=== PATIENT | female | born 1950 | race Caucasian/White ===

== ENCOUNTER → 2018-04-18 08:00 | Outpatient (CLI) | payer MEDICARE | END | disposition home or self-care (01) | LOC: D.MAMMO 08:00 | DX: Z12.31 Encounter for screening mammogram for malignant neoplasm of breast (principal) ==

== ENCOUNTER 2018-06-09 10:46 | Outpatient (CLI) | payer MEDICARE, OTHER ==
[~2018-06-09] VITALS: Ht 162.6 cm; Wt 74.5 kg
--- NOTE | ~2018-06-09 | HEMODYNAMI ---
PATIENT:GLYNN PERSON MEDICAL RECORD: [id number] : 46 LOCATION:[facility] ADMISSION DATE: 06/09/18 Generatedon:06/09/201813:49 Patient name: GLYNN PERSON Patient #: [id number] SSN: [id number] : 1950 Date of study: 06/09/2018 Page: Of Hemodynamic Procedure Report Patient Data Patient Demographics Procedure consent was obtained First Name: GLYNN Gender: Female Last Name: NAYA : 1950 Patient #: [id number] Age: 67 year(s) Race: SSN: [id number] Additional ID: [id number] Contact details Address: [place] [address] State: [place] City: [place] Zip code: [address] Past Medical History Allergies Allergen Reaction Date Comments Reported Other allergy 06/09/2018 chocolate, latex Admission Admission Data Admission Date: 06/09/2018 Admission Time: 10:46 Procedure Procedure Types Cath Procedure Diagnostic Procedure Right Heart RHC and LHC w/Coronaries Aortic Root Angiography Sedation Charges Moderate Sedation up to 15 minutes Procedure Description Procedure Date Procedure Date: 06/09/2018 Procedure Start Time: 13:25 Procedure End Time: 13:48 Procedure Staff Name Function Chase Jarquin MD Performing Physician Alexandra Bruce RT Scrub Richmond Rodriguez RN Nurse Rula Gomez RT Monitor Procedure Data Cath Procedure Fluoroscopy Diagnostic fluoroscopy Total fluoroscopy Time: 3.6 time: 3.6 min min Diagnostic fluoroscopy Total fluoroscopy dose: 361 dose: 361 mGy mGy Contrast Material Contrast Material Type Amount (ml) Isovue 300 83 Entry Location Entry Primary Successful Side Size Upsize Upsize Entry Closure Bianchi ccessful Closure Location (Fr) 1 (Fr) 2 (Fr) Remarks Device Remarks Femoral Right 5 Fr Exoseal artery Femoral Right 7 Fr Manual vein Short Compression Estimated blood loss: 10 ml Diagnostic catheters Device Type Used For End Catheter Placement SWAN 7Fr Thermodilution Pressure cather (131F7P) Measurement MULTIPACK JL 4.0 5Fr Procedure catheter MULTIPACK 3DRC 5Fr Procedure catheter MULTIPACK Pigtail 5 Fr Procedure catheter Procedure Complications No complications Procedure Medications Medication Administration Route Dosage Oxygen etCO2 Nasal cannula 2 l/min Lidocaine 2% added to field 20 Heparin Flush Bag added to field 2 bags (1000units/500ml NS) 0.9% NaCl I.V. 100 ml/hr Versed I.V. 1 mg Fentanyl I.V. 50 mcg Versed I.V. 1 mg Fentanyl I.V. 50 mcg Hemodynamics Rest Heart Rate: 80 (bpm) Oxygen Saturations Time Location Saturations Hgb (g/dl) O2 Content Use (%) (ml/L) 13:32 PA 77 13:34 RV 75.8 13:36 RA 77 Pressure Samples Time Site Value (mmHg) Purpose Heart Use Rate(bpm) 13:28 PA 25/5(13) Snapshot 76 13:29 PCW -2/-2(-3) Snapshot 75 13:31 PA 30/11(19) Snapshot 79 13:31 PCW 1/6(3) Snapshot 77 13:33 RV 29/-3,1 Snapshot 77 13:34 RA 4/2(1) Snapshot 81 13:41 LV 130/-11,12 Snapshot 87 13:42 LV 123/-16,12 Snapshot 92 13:42 AO 133/62(94) Pullback 66 13:42 LV 133/-11,13 Pullback 66 13:43 AO 122/53(82) Pullback 90 13:43 LV 129/-16,8 Pullback 90 Gradients Valve Time Site 1 Site 2 Mean SEP/DFP Peak To Heart Use (mmHg) (sec/min) Peak Rate (mmHg) (bpm) Aortic 13:42 LV AO 6 13 0 66 133/-11,13 133/62(94) Aortic 13:43 LV AO 10 25 7 90 129/-16,8 122/53(82) Calculations Valve P-P Mean Valve Index Valve Source Name Gradient Area Flow (cm2) Aortic 7 10 7 10 Snapshots Pre Cath Intra NCS Post Cath Vital Signs Time Heart Resp SPO2 etCO2 NIBP Rhythm Pain Sedation Rate (ipm) (%) (mmHg) (mmHg) Status Level (bpm) 13:14:06 73 18 97 25 125/70(94) NSR 0 (11) 10(A) , No pain 13:18:17 78 15 97 29.2 125/67(89) NSR 0 (11) 10(A) , No pain 13:22:27 78 11 94 27.7 117/70(92) NSR 0 (11) 10(A) , No pain 13:26:39 70 14 96 18.7 97/53(70) NSR 0 (11) 10(A) , No pain 13:30:43 73 12 99 23.2 117/62(90) NSR 0 (11) 10(A) , No pain 13:34:53 81 17 96 31.4 117/68(90) NSR 0 (11) 10(A) , No pain 13:39:03 83 13 97 29.2 113/65(86) NSR 0 (11) 10(A) , No pain 13:43:10 87 16 97 34.4 124/66(95) NSR 0 (11) 10(A) , No pain 13:47:20 82 11 96 35.2 129/69(97) NSR 0 (11) 10(A) , No pain Medications Time Medication Route Dose Verified Delivered Reason Notes Eff ectiveness by by 13:15:10 Oxygen etCO2 2 Chase Buffie used for Nasal l/min Britton Rodriguez RN procedure cannula 13:15:28 Lidocaine 2% added 20ml Chase Buffie for local to vial Britton Rodriguez RN anesthetic field 13:15:33 Heparin Flush added 2 Chase Buffie used for Bag to bags Britton Rodriguez RN procedure (1000units/500ml field NS) 13:15:41 0.9% NaCl I.V. 100 Chase Buffie Per ml/hr Britton Rodriguez RN physician 13:23:33 Versed I.V. 1 mg Chase Buffie for Britton Rodriguez RN sedation 13:23:42 Fentanyl I.V. 50 Chase Buffie for mcg Britton Rodriguez RN sedation 13:25:49 Versed I.V. 1 mg Chase Buffie for Britton Rodriguez RN sedation 13:25:52 Fentanyl I.V. 50 Chase Buffie for mcg Britton Rodriguez RN sedation Procedure Log Time Note 12:55:45 Informed consent obtained and on chart 12:56:12 Richmond Rodriguez RN sent for patient. Start room use. 12:56:13 Time tracking: Regular hours (M-F 7:00 - 5:00) 12:56:17 Plan of Care:Hemodynamics will remain stable., Cardiac rhythm will remain stable., Comfort level will be maintained., Respiratory function will remain adequate., Patient/ family verbilizes understanding of procedure., Procedure tolerated without complication., Recovers from procedure without complications.. 13:04:50 Patient received from Pre/Post Procedure Room to [facility] 2 Alert and oriented. Tansferred to table in Supine position. 13:04:52 Warm blankets applied, and angela hugger turned on for patient comfort. 13:04:52 Correct patient and procedure confirmed by team. 13:04:53 ECG and BP/O2 sat monitors applied to patient. 13:12:59 Vital chart was started 13:15:10 Oxygen 2 l/min etCO2 Nasal cannula was administered by Richmond Rodriguez RN; used for procedure; 13:15:28 Lidocaine 2% 20ml vial added to field was administered by Richmond Rodriguez RN; for local anesthetic; 13:15:33 Heparin Flush Bag (1000units/500ml NS) 2 bags added to field was administered by Richmond Rodriguez RN; used for procedure; 13:15:41 0.9% NaCl 100 ml/hr I.V. was administered by Richmond Rodriguez RN; Per physician; 13:19:18 Use device set Femoral Dx 13:20:20 SHEATH 7FR [place] ([id number]) opened to sterile field. 13:20:21 ACIST Syringe (74400) opened to sterile field. 13:20:22 Bag Decanter (2001S) opened to sterile field. 13:20:22 Medline Cath Pack ([id number]) opened to sterile field. 13:20:23 DIAGNOSTIC WIRE .035 260cm J wire (048763) opened to sterile field. 13:20:24 ACIST Hand Control (45746) opened to sterile field. 13:20:25 ACIST Manifold (53957) opened to sterile field. 13:20:26 DIAGNOSTIC Multipack 5Fr catheter set (PP7529) opened to sterile field. 13:20:26 Tegaderm 4 x 4 (1626W) opened to sterile field. 13:20:28 PERCUTANEOUS ENTRY 19GA needle opened to sterile field. 13:20:33 SHEATH Prelude 5Fr 0.035 ([id number]) opened to sterile field. 13:20:48 Baseline sample Acquired. 13:20:52 Rhythm: sinus rhythm 13:20:54 Full Disclosure recording started 13:21:08 H&P Date Dictated: 06/04/2018 Within 30 days and on chart.. 13:21:10 Pre-procedure instructions explained to patient. 13:21:13 Family in waiting room. 13:21:15 Patient NPO since Midnight. 13:21:35 Patient allergic to Other allergychocolate, latex 13:21:39 Is the patient allergic to Iodine/contrast media? No. 13:21:46 Was the patient premedicated? Yes 13:21:47 Is patient on blood thinner?No 13:21:49 Patient diabetic? No. 13:21:54 Snore? No 13:21:55 Sleep apnea? No 13:22:01 Dentures? Yes in tight 13:22:08 IV patent on arrival in left forearm with 0.9% NaCl at O. 13:22:29 Lab results completed and on chart. 13:22:34 Right groin area was prepped with chlora-prep and draped in sterile fashion 13:22:35 Alarms reviewed by R. N. 13:22:36 Sharps counted by scrub and verified by R.N. 13:22:44 Physician arrived 13::44 --------ALL STOP TIME OUT------ 13:22:45 Final Timeout: patient, procedure, and site verified with staff and physician. All members of the team are in agreement. 13:22:48 Right groin site verified by team. 13:22:57 Physical assessment completed. ASA score P 2 - A patient with mild systemic disease as per Chase Jarquin MD. 13:23:33 Versed 1 mg I.V. was administered by Richmond Rodriguez RN; for sedation; 13:23:33 Sedation plan: IV Moderate Sedation Medication:Versed, Fentanyl 13:23:42 Fentanyl 50 mcg I.V. was administered by Richmond Rodriguez RN; for sedation; 13:23:43 Procedure started. 13:25:22 Local anesthetic to right femoral artery with Lidocaine 2% by Chase Jarquin MD.INITIAL ACCESS ONLY 13:25:49 Versed 1 mg I.V. was administered by Richmond Rodriguez RN; for sedation; 13:25:52 Fentanyl 50 mcg I.V. was administered by Richmond Rodriguez RN; for sedation; 13::56 A 5 Fr sheath was inserted into the Right Femoral artery 13:26:23 A 7 Fr Short sheath was inserted into the Right Femoral vein 13:26:57 A SWAN 7Fr Thermodilution cather (131F7P) was advanced over the wire and used for Pressure Measurement. 13:30:31 Zero performed for pressure channel P1 13:30:33 Zero performed for pressure channel P1 13:32:56 PA saturation: 77% 13:34:09 RV saturation: 75.8% 13:36:02 RA saturation: 77% 13:37:48 Catheter removed. 13:37:55 A MULTIPACK JL 4.0 5Fr catheter was advanced over the wire and used for Procedure. 13:38:14 LCA angiography performed. 13:38:19 Catheter removed. 13:39:46 A MULTIPACK 3DRC 5Fr catheter was advanced over the wire and used for Procedure. 13:40:03 RCA angiography performed. 13:40:48 Catheter removed. 13:40:56 A MULTIPACK Pigtail 5 Fr catheter was advanced over the wire and used for Procedure. 13:41:50 LV angiography performed. 13:42:21 EF : 60 % 13:44:30 LV hemodynamics recorded. 13:44:48 Catheter removed. 13:45:37 Sheath removed intact; hemostasis achieved with Manual Compression to the Right Femoral vein. 13:45:44 Sheath removed intact; hemostasis achieved with Exoseal to the Right Femoral artery. 13:45:46 Procedure ended.(Physican Out) 13:46:01 Fluoroscopy time 03.60 minutes. 13:46:09 Fluoroscopy dose: 361 mGy 13:46:09 Flurop Dose total: 361 13:46:15 Contrast amount:Isovue 300 83ml. 13:46:17 Sharps counted by scrub and verified by R.N. 13:46:22 Insertion/operative site no bleeding no hematoma. 13:46:28 Post-op/insertion site Right Femoral artery dressed using a 4 x 4 and Tegaderm. 13:46:30 Post Procedure Pulses reassessed and unchanged 13:46:57 Post-procedure physical assessment completed. ASA score P 2 - A patient with mild systemic disease as per Chase Jarquin MD. 13:47:00 Post procedure rhythm: unchanged. 13:47:02 Estimated blood loss: 10 ml 13:47:04 Post procedure instruction explained to patient.Patient verbalizes understanding. 13:47:23 Procedure type changed to Cath procedure, Diagnostic procedure, Right Heart, RHC and LHC w/Coronaries, Aortic Root Angiography, Sedation Charges, Moderate Sedation up to 15 minutes 13:47:27 Procedure and supply charges have been captured, reviewed, submitted and are correct. 13:48:19 Procedure Complication : No complications 13:48:21 Vital chart was stopped 13:48:21 See physician's report for complete and final results. 13:48:23 Report given to Pre/Post Procedure Room. 13:48:26 Patient transfered to Pre/Post Procedure Room with Stretcher. 13:48:29 Procedure ended. 13:48:29 Full Disclosure recording stopped 13:48:34 End room use (Document Last) Device Usage Item Name Manufacture Quantity Catalog Number Hospital Part Current M inimal Lot# / Charge Number Stock Stock Serial# Code SHEATH 7FR Terumo 1 [id number] [id number] 232073 5 [place] ([id number]) ACIST Syringe Acist 1 50336 485783 841085 527028 2 0 (97466) [employer] Bag Decanter Microtek 1 2001S 482689 05880 987279 5 (2001S) Medical Inc. Medline Cath Cardinal 1 [id number] 628443 13158 880821 5 [employer] Health ([id number]) DIAGNOSTIC WIRE [place] 1 211216 654271 067318 590145 3 0 .035 260cm J wire (130551) ACIST Hand Acist 1 53774 077104 586297 794353 5 Control (74399) [employer] ACIST Manifold Acist 1 10395 043657 977484 055524 5 (72492) [employer] DIAGNOSTIC Cardinal 1 [id number] 650335 61435 797034 3 0 Multipack 5Fr Health catheter set ([id number]) Tegaderm 4 x 4 3M 1 1626W 960480 826548 055230 5 (1626W) PERCUTANEOUS Cook Medical 1 R73123 444656 457090 5 ENTRY 19GA needle SHEATH Prelude Merit 1 [id number] 789584 485662 799158 5 5Fr 0.035 Medical ([id number]-[id number]) SWAN 7Fr [place] 1 131F7P 392841 72115 271355 3 Thermodilution [employer]iences cather (131F7P) MULTIPACK JL Cardinal 1 753133 5 4.0 5Fr Health catheter MULTIPACK 3DRC Cardinal 1 815456 5 5Fr catheter Health MULTIPACK Cardinal 1 330794 5 Pigtail 5 Fr Health catheter Signature Audit [place] Stage Time Signature Unsigned Intra-Procedure 06/09/2018 Rula Gomez 1:49:11 PM RT(R) Signatures Monitor : Rula Gomez Signature : RT Date : Time : [place] [id number]
[2018-06-09] MEDS ORDERED: VERELAN120 MG PO (11:08)
[2018-06-09 11:20] VITALS: BP 151/86; Ht 162.6 cm; Wt 74.5 kg
[2018-06-09 11:27] LABS: BASOPHILS 0.4 % (0-2); EOSINOPHILS 1.2 % (0-7); HEMATOCRIT 44.3 % (36.0-48.0); HEMOGLOBIN 14.9 g/dL (12-16); IMMATURE GRANULOCYTES 0.2 % (0-5); MCH 31.5 pg (26.0-34.0); MCHC 33.6 g/dL (31.0-37.0); MCV 93.7 fL (80.0-100.0); MEAN PLATELET VOLUME 10.1 fL (7.4-10.4); MONOCYTES 6.2 % (2-11); PLATELET COUNT 211 10x3/uL (130-400); RBC 4.73 10x6/uL (4.00-5.40); RDW 12.9 % (11.5-14.5); WBC 5.7 10x3/uL (4.8-10.8)
[2018-06-09 11:34] LABS: ANION GAP 13.1 mmol/L (8-16); CALCIUM 9.1 mg/dL (8.5-10.1); CARBON DIOXIDE 28.1 mmol/L (21.0-32.0); CREATININE - SERUM 0.9 mg/dL (0.6-1.3); POTASSIUM - SERUM 4.2 mmol/L (3.5-5.1)
== END 2018-06-09 16:15 | disposition home or self-care (01) ==
LOC: D.CATH 10:46
PROVIDERS: Internal Medicine Cardiovascular Disease
DX: I25.119 Atherosclerotic heart disease of native coronary artery with unspecified angina pectoris (principal); I35.1 Nonrheumatic aortic (valve) insufficiency; Z01.812 Encounter for preprocedural laboratory examination

== ENCOUNTER → 2018-10-16 11:34 | Outpatient (CLI) | payer MEDICARE, OTHER ==
[2018-06-09 11:20] VITALS: BMI 28.2
[~2018-10-16 11:34] MED LIST: VERELAN120 MG PO
[2018-10-19 18:06] LABS: IMMUNOGLOBULIN E 21 IU/mL (0-100)
== END | disposition home or self-care (01) ==
LOC: D.LABREF 11:34
PROVIDERS: Internal Medicine Pulmonary Disease
DX: J30.2 Other seasonal allergic rhinitis (principal)

== ENCOUNTER → 2018-11-28 08:39 | Outpatient (CLI) | payer MEDICARE, OTHER ==
[2018-06-09 11:20] VITALS: BMI 28.2
== END | disposition home or self-care (01) ==
LOC: D.RT 08:39
PROVIDERS: ATTEND Internal Medicine Pulmonary Disease
DX: R06.09 Other forms of dyspnea (principal); J30.2 Other seasonal allergic rhinitis

== ENCOUNTER 2019-03-09 14:00 | Emergency (ER) | payer MEDICARE, OTHER ==
[~2019-03-09] VITALS: Ht 162.6 cm; Wt 80.5 kg
[2019-03-09 14:03] VITALS: Ht 162.6 cm; Wt 80.5 kg
[2019-03-09] MEDS ORDERED: FLUTICASONE PRO16 GM NASAL (14:05)
[2019-03-09] MEDS ORDERED: INCRUSE ELLI62.5 MCG INH (14:06)
[2019-03-09 14:34] LABS: BASOPHILS 0.1 % (0-2); EOSINOPHILS 0.2 % (0-7); HEMATOCRIT 41.2 % (36.0-48.0); HEMOGLOBIN 13.7 g/dL (12-16); IMMATURE GRANULOCYTES 0.2 % (0-5); LYMPHOCYTES 3.3 % (15-50); MCH 31.1 pg (26.0-34.0); MCHC 33.3 g/dL (31.0-37.0); MCV 93.6 fL (80.0-100.0); MEAN PLATELET VOLUME 10.1 fL (7.4-10.4); MONOCYTES 2.2 % (2-11); PLATELET COUNT 186 10x3/uL (130-400); RDW 13.1 % (11.5-14.5); WBC 9.1 10x3/uL (4.8-10.8)
[2019-03-09 14:50] LABS: ALBUMIN 3.9 g/dL (3.4-5.0); ALKALINE PHOSPHATASE 88 U/L (46-116); ALT (SGPT) 25 U/L (10-68); CALC OSMOLALITY 274 mosm/kg (275-300); CALCIUM 8.9 mg/dL (8.5-10.1); CARBON DIOXIDE 26.4 mmol/L (21.0-32.0); CHLORIDE - SERUM 102 mmol/L (98-107); GLUCOSE 126 mg/dL (74-106); POTASSIUM - SERUM 3.7 mmol/L (3.5-5.1); PROTEIN - SERUM 7.6 g/dL (6.4-8.2); SODIUM 136 mmol/L (136-145); UREA NITROGEN 15 mg/dL (7-18); eGFR NON AFRICAN AMERICAN 58 mL/min (90-120)
[2019-03-09 14:58] LABS: LIPASE 85 U/L (73-393); PRO BNP 50 pg/mL (0-125); TROPONIN-I < 0.017 ng/mL (0.000-0.060)
[2019-03-09 16:06] LABS: APPEARANCE CLEAR (CLEAR); BILIRUBIN NEGATIVE (NEGATIVE); COLOR YELLOW (YELLOW); GLUCOSE NEGATIVE (NEGATIVE); KETONE NEGATIVE (NEGATIVE); NITRITE NEGATIVE (NEGATIVE); PROTEIN NEGATIVE (NEGATIVE); SPECIFIC GRAVITY 1.015 (1.005-1.020); UROBILINOGEN NORMAL (NORMAL)
[2019-03-09 18:57] VITALS: BP 116/40
== END 2019-03-09 18:58 | disposition home or self-care (01) ==
LOC: D.ER 14:00
PROVIDERS: Family Medicine
DX: J44.9 Chronic obstructive pulmonary disease, unspecified (principal)

== ENCOUNTER → 2020-01-08 13:27 | Outpatient (CLI) | payer MEDICARE, OTHER ==
[2019-03-09 14:03] VITALS: BMI 30.4
[~2020-01-08 13:27] MED LIST changes: +FLUTICASONE PRO16 GM NASAL; +INCRUSE ELLI62.5 MCG INH
== END | disposition home or self-care (01) ==
LOC: D.RT 12-07 10:00 → D.RAD 12-07 10:45
PROVIDERS: ATTEND Internal Medicine Pulmonary Disease
DX: J44.9 Chronic obstructive pulmonary disease, unspecified (principal)

== ENCOUNTER → 2020-02-01 18:32 | Outpatient (CLI) | payer MEDICARE, OTHER ==
[2019-03-09 14:03] VITALS: BMI 30.4
[2020-02-01 19:03] LABS: HEMATOCRIT 55.2 % (36.0-48.0); HEMOGLOBIN 14.6 g/dL (12-16); MCH 31.5 pg (26.0-34.0); MCHC 26.4 g/dL (31.0-37.0); RBC 4.64 10x6/uL (4.00-5.40); RDW 18.2 % (11.5-14.5); WBC 4.5 10x3/uL (4.8-10.8)
[2020-02-01 19:16] LABS: PLATELET COUNT 66 10x3/uL (130-400)
[2020-02-01 19:36] LABS: EOSINOPHILS 3 % (0-7); LYMPHOCYTES 75 % (15-50); MONOCYTES 2 % (2-11); NEUTROPHILS 19 % (40-80); PLATELET ESTIMATE NORMAL; PLATELET MORPHOLOGY PLT CLUMPS PRESENT
== END | disposition home or self-care (01) ==
LOC: D.LABREF 18:32
PROVIDERS: ATTEND Internal Medicine Pulmonary Disease
DX: J30.2 Other seasonal allergic rhinitis (principal)

== ENCOUNTER 2020-02-04 13:15 | Emergency (ER) | payer MEDICARE, OTHER ==
[~2020-02-04] VITALS: Ht 162.6 cm; Wt 77.3 kg
[2020-02-04 13:57] VITALS: Ht 162.6 cm; Wt 77.3 kg
[2020-02-04] MEDS ORDERED: DICLOFENAC SODI50 MG PO (15:48)
[2020-02-04 16:43] VITALS: BP 142/76
== END 2020-02-04 16:06 | disposition home or self-care (01) ==
LOC: D.ER 13:15
DX: M17.12 Unilateral primary osteoarthritis, left knee (principal); J45.909 Unspecified asthma, uncomplicated; M25.562 Pain in left knee

== ENCOUNTER → 2020-04-18 09:32 | Outpatient (CLI) | payer MEDICARE, OTHER ==
[2020-02-04 13:57] VITALS: BMI 29.2
[~2020-04-18 09:32] MED LIST changes: +DICLOFENAC SODI50 MG PO
== END | disposition home or self-care (01) ==
LOC: D.CT 09:32
PROVIDERS: ATTEND Internal Medicine Pulmonary Disease
DX: R91.8 Other nonspecific abnormal finding of lung field (principal)

== ENCOUNTER → 2020-12-07 10:28 | Outpatient (CLI) | payer MEDICARE, OTHER ==
[2020-02-04 13:57] VITALS: BMI 29.2
== END | disposition home or self-care (01) ==
LOC: D.MRI 11-16 13:00
PROVIDERS: ATTEND Surgery
DX: I73.9 Peripheral vascular disease, unspecified (principal)

== ENCOUNTER → 2021-01-17 10:19 | Outpatient (CLI) | payer MEDICARE, OTHER ==
[2020-02-04 13:57] VITALS: BMI 29.2
[2021-01-17 11:22] LABS: CREATININE - SERUM 0.9 mg/dL (0.6-1.3)
== END | disposition home or self-care (01) ==
LOC: D.CT 10:19
PROVIDERS: ATTEND Radiology Diagnostic Radiology
DX: I70.202 Unspecified atherosclerosis of native arteries of extremities, left leg (principal)